=== PATIENT | female | born 1990 | race Two or more races ===

== ENCOUNTER 2025-05-11 18:06 | Emergency (ER) | payer OTHER ==
[~2025-05-11] VITALS: Ht 154.9 cm; Wt 61.2 kg
[2025-05-11 18:14] VITALS: BP 121/71; TEMP 98; O2SAT 98
[2025-05-11] MEDS ORDERED: HYDR-500 PO (19:15)
== END 2025-05-11 23:32 | disposition home or self-care (01) ==
LOC: ER 18:08
DX: F41.9 Anxiety disorder, unspecified (principal)